=== PATIENT | male | born 1990 | race Caucasian/White ===

== ENCOUNTER 2016-11-30 22:51 | Emergency (ER) | payer SELFPAY ==
[~2016-11-30] VITALS: Ht 172.7 cm; Wt 72.6 kg
[2016-11-30 23:28] LABS: Urine Bilirubin Negative (Negative); Urine Color Yellow (Yellow); Urine Glucose Normal (Normal); Urine Mucus FEW (None Seen); Urine Nitrite Negative (Negative); Urine RBC 10 /hpf (0 - 3); Urine Squamous Epithelial Cell FEW /hpf (<5); Urine Urobilinogen Normal (Negative)
[2016-11-30 23:30] LABS: Basophils # (auto) 0 uL; Basophils % (auto) 0.2 % (0.0-2.0); CONDITION Y; Eosinophils # (auto) 0 uL; Hematocrit 41.2 % (41.0-53.0); Hemoglobin 14.2 g/dL (13.5-17.5); Lymphocytes # (auto) 0.8 uL; Lymphocytes % (auto) 9.3 % (10.0-50.0); Mean Corpuscular Hemoglobin 32.7 pg (28.0-32.0); Mean Corpuscular Hgb Conc. 34.3 g/dL (32.0-36.0); Mean Corpuscular Volume 95.2 fL (80.0-100.0); Mean Platelet Volume 7.5 fL (7.4-10.4); Monocytes # (auto) 0.7 uL; Neutrophils # (auto) 7.1 uL; Neutrophils % (auto) 82.5 % (37.0-80.0); Platelet Count (auto) 190 10^3/uL (140-450); Red Cell Distribution Width 13.5 % (11.6-16.0); White Blood Cell 8.6 10^3/uL (4.4-10.8)
[2016-11-30 23:30] LABS: Urine Blood 1+ /uL (Negative); Urine Ketone 2+ (Negative)
[2016-11-30 23:55] LABS: Albumin 4.6 g/dL (3.4-5.0); Anion Gap 14 (5-15); Aspartate Aminotransferase 193 U/L (15-37); Blood Urea Nitrogen 7 mg/dL (7-18); Calcium 9.4 mg/dL (8.5-10.1); Carbon Dioxide 24 mmol/L (21-32); Chloride 95 mmol/L (98-107); GFR African American 116 mL/min; GFR Non-African American 96 mL/min; Glucose 104 mg/dL (74-106); Potassium 3.9 mmol/L (3.5-5.1); Sodium 133 mmol/L (136-145)
[2016-11-30 23:58] LABS: Alkaline Phosphatase 46 U/L (45-117); Total Protein 9.4 g/dL (6.4-8.2)
[2016-12-01] MEDS ORDERED: LORazepam 2MG/ML-1ML VIAL ONE (02:32)
[2016-12-01] MEDS ORDERED: LORazepam 2MG/ML-1ML VIAL IM ONE (02:45)
[2016-12-01] MEDS ORDERED: THIAMINE HCL 100 MG/ML 2ML VIAL IM ONE (03:15)
[2016-12-01 04:30] VITALS: BP 109/65
== END 2016-12-01 05:00 | disposition home or self-care (01) ==
LOC: ER 22:57
DX: S02.2XXA Fracture of nasal bones, initial encounter for closed fracture (principal); S09.90XA Unspecified injury of head, initial encounter; R53.1 Weakness; R42 Dizziness and giddiness; E87.1 Hypo-osmolality and hyponatremia; F10.239 Alcohol dependence with withdrawal, unspecified; W22.8XXA Striking against or struck by other objects, initial encounter; Y93.89 Activity, other specified; Y92.89 Other specified places as the place of occurrence of the external cause; Y99.8 Other external cause status
CPT/HCPCS: 36415; 70450; 70486; 80053; 80307; 80320; 81001; 85025; 96372; 99285; J2060; J3411

== ENCOUNTER 2024-08-11 14:44 | Emergency (ER) | payer MEDICAID, OTHER ==
[~2024-08-11] VITALS: Ht 180.3 cm; Wt 91.0 kg
--- NOTE | 2024-08-11 15:21 | ED.PDOC ---
History of Present Illness HPI Comments 34 y/o MMARINA presents to the ED for CC of generalized weakness. EMS reports, patient is coming from home where he was relayed to come to the ED by PCP, for possible anemia and liver chorisis. Patient states, that he was sent by PCP () for possible anemia. Patient comments on, symptoms of weakness following his last lab draws yesterday (08/10/24). Patient relays, that he dose drink heavily having x6-8 in day; states last drink to be 0000 today (08/11/24). Patient denies fever, chills, fatigue, nausea, or vomiting. No other symptoms or modifiers present at this time. Chief Complaint: Abnormal LAB's Time Seen by MD: 15:00 Primary Care Provider: UNKNOWN Reviewed Notes: Nurses Notes, Medications, Allergies Allergies: Coded Allergies: NO KNOWN ALLERGIES (Unverified , 11/30/16) Information Source: Patient Mode of Arrival: EMS Severity: Moderate Timing: Days Duration: Since onset Prehospital treatment: None Past Medical History PAST MEDICAL HISTORY: Denies Surgical History: Denies all surgeries Family History Family History: Unknown Social History Smoker: Non-Smoker Alcohol: Heavy Drugs: Denies Drug Use Lives In: Home Constitutional: denies: chills, diaphoresis, fatigue, fever, malaise, sweats, weakness, others EENTM: denies: blurred vision, double vision, ear bleeding, ear discharge, ear drainage, ear pain, ear ringing, eye pain, eye redness, hearing loss, mouth pain, mouth swelling, nasal discharge, nose bleeding, nose congestion, nose pain, photophobia, tearing, throat pain, throat swelling, voice changes, others Respiratory: denies: cough, hemoptysis, orthopnea, SOB at rest, shortness of breath, SOB with excertion, stridor, wheezing, others Cardiovascular: denies: chest pain, dizzy spells, diaphoresis, Dyspnea on exertion, edema, irregular heart beat, left arm pain, lightheadedness, palpitations, PND, syncope, others Gastrointestinal: denies: abdomen distended, abdominal pain, blood streaked bowels, constipated, diarrhea, dysphagia, difficulty swallowing, hematemesis, melena, nausea, poor appetite, poor fluid intake, rectal bleeding, rectal pain, vomiting, others Genitourinary: denies: burning, dysuria, flank pain, frequency, hematuria, incontinence, penile discharge, penile sore, pain, testicle pain, testicle swelling, urgency, others Neurological: denies: dizziness, fainting, headache, left sided numbness, left sided weakness, numbness, paresthesia, pre-existing deficit, right sided numbness, right sided weakness, seizure, speech problems, tingling, tremors, weakness, others Musculoskeletal: denies: back pain, gout, joint pain, joint swelling, muscle pain, muscle stiffness, neck pain, others Integumetry: denies: bruises, change in color, change in hair/nails, dryness, laceration, lesions, lumps, rash, wounds, others Allergic/Immunocompromised: denies: Difficulty Healing, Frequent Infections, H carlos, Itching, others Hematologic/Lymphatic: denies: anemia, blood clots, easy bleeding, easy bruising, swollen glands, others Endocrine: denies: excessive hunger, excessive sweating, excessive thirst, excessive urination, flushing, intolerance to cold, intolerance to heat, unexplained weight gain, unexplained weight loss, others Psychiatric: denies: anxiety, bipolar disorder, depression, hopeless, panic disorder, schizophrenia, sleepless, suicidal, others All Other Systems: Reviewed and Negative Physical Exam General Appearance: No Apparent Distress, Normal HEENT: Normal ENT Inspection, Pharynx Normal Neck: Full Range of Motion, Non-Tender, Normal, Normal Inspection Respiratory: Chest Non-Tender, Lungs Clear, No Accessory Muscle Use, No Respiratory Distress, Normal Breath Sounds Cardiovascular: No Edema, No Murmur, No Gallop, Normal Peripheral Pulses, Regular Rate/Rhythm Breast Exam: Deferred Gastrointestinal: No Organomegaly, Non Tender, No Pulsatile Mass, Normal Bowel Sounds, Soft Genitalia: Deferred Pelvic: Deferred Rectal: Deferred Extremities: Non-tender, No pedal edema Musculoskeletal : Apperance: Normal Neurologic: Alert, Normal Mood Cerebellar Function: Normal Reflexes: Normal Skin: Dry, Normal Color, Warm Lymphatic: No Adenopathy Was a procedure done? Was a procedure done?: No EKG EKG : Pulse Rate (adult): 90 Powers: Normal Cardiac Rhythm: NSR Block: None Hypertrophy: None ST: Normal Differential Dx Considerations may include: Anemia X-Ray, Labs, Meds, VS Vital Signs Date Time Temp Pulse Resp B/P (MAP) Pulse Ox O2 Delivery O2 Flow Rate FiO2 08/11/24 16:54 98.1 89 15 115/69 (84) 97 98.1 08/11/24 15:21 90 08/11/24 15:08 94 18 96 Room Air 08/11/24 15:08 98.9 94 18 120/75 (90) 96 98.9 08/11/24 15:00 98.9 92 18 116/64 (81) 100 98.9 08/11/24 14:57 90 Lab Test 08/11/24 16:15 08/11/24 15:13 Range/Units Urine Color Dark-yellow Yellow Urine Clarity Clear Clear Urine pH 6.5 5.0-9.0 Urine Specific [place] 1.023 1.001-1.035 Urine Protein Trace H Negative Urine Ketones Trace Negative Urine Blood Negative Negative /uL Urine Nitrite Negative Negative Urine Bilirubin 1+ Negative Urine Urobilinogen 6 Negative mg/dL Urine Leukocyte Esterase Negative Negative /uL Urine RBC 2 0 - 3 /hpf Urine Microscopic WBC 1 0-3 /HPF Urine Squamous Epithelial Cells Few <5 /hpf Urine Bacteria None seen None Seen /hpf Urine Mucus Few None Seen Urine Glucose Normal Normal mg/dL White Blood Count 3.3 L 4.4-10.8 10^3/uL Red Blood Count 2.84 L 4.5-5.90 10^6/uL Hemoglobin 7.8 L 13.5-17.5 g/dL Hematocrit 24.8 L 41.0-53.0 % Mean Corpuscular Volume 87.5 80.0-100.0 fL Mean Corpuscular Hemoglobin 27.4 L 28.0-32.0 pg Mean Corpuscular Hemoglobin Concent 31.3 L 32.0-36.0 g/dL Red Cell Distribution Width 21.8 H 11.8-14.3 % Platelet Count 29 L 140-450 10^3/uL Mean Platelet Volume 8.2 6.9-10.8 fL Neutrophils (%) (Auto) 44.1 37.0-80.0 % Lymphocytes (%) (Auto) 42.7 10.0-50.0 % Monocytes (%) (Auto) 10.6 0.0-12.0 % Eosinophils (%) (Auto) 1.2 0.0-7.0 % Basophils (%) (Auto) 1.4 0.0-2.0 % Neutrophils # (Auto) 1.5 L 1.6-8.6 10 ^3/uL Lymphocytes # (Auto) 1.4 0.4-5.4 10 ^3/uL Monocytes # (Auto) 0.4 0-1.3 10 ^3/uL Eosinophils # (Auto) 0 0-0.8 10 ^3/uL Basophils # (Auto) 0 0-0.2 10 ^3/uL Nucleated Red Blood Cells 0.1 % Platelet Estimate Decreased Large Platelets Few Hypochromasia (manual) Slight Anisocytosis (manual) Slight Target Cells Few Prothrombin Time 13.0 H 9.3-11.8 sec Prothrombin Time INR 1.25 H 0.9-1.15 Activated Partial Thromboplast Time 34.5 24.5-34.5 SEC Sodium Level 141 136-145 mmol/L Potassium Level 4.1 3.5-5.1 mmol/L Chloride Level 104 98-107 mmol/L Carbon Dioxide Level 26 20-31 mmol/L Anion Gap 11 5-15 Blood Urea Nitrogen 5 L 9-23 mg/dL Creatinine 0.57 L 0.700-1.30 mg/dL Glomerular Filtration Rate Calc 132 >90 mL/min BUN/Creatinine Ratio 8.8 L 10.0-20.0 Serum Glucose 113 H 74-106 mg/dL Calcium Level 9.1 8.7-10.4 mg/dL Total Bilirubin 2.7 H 0.2-1.0 mg/dL Aspartate Amino Transferase (AST) 116 H 13-40 U/L Alanine Aminotransferase (ALT) 23 7-40 U/L Alkaline Phosphatase 225 H 46-116 U/L Total Protein 8.9 H 5.7-8.2 g/dL Albumin 3.7 3.2-4.8 g/dL [address] [address] Ph: [phone] DIAGNOSTIC IMAGING Diagnostic Imaging Report : [id number] Signed PATIENT: ALFREDO DUMONT ACCT: [id number] UNIT: [id number] : 1990 LOC: ER ROOM / BED: / AGE / SEX: 34 / M ADM STATUS: REG ER SERVICE 1503 ORDERING PHYSICIAN: CASA BAZZI MD PROCEDURE(s): ABPL - CT AB PEL WO CON-NO ORAL OR IV REASON: ?cirrhosis and splenomegally? ORDER NUMBER(s): [id number], ACCESSION NUMBER(s): [id number] CT ABDOMEN AND PELVIS WITHOUT CONTRAST CLINICAL HISTORY: cirrhosis and splenomegally TECHNIQUE: Multiple contiguous axial images of the abdomen and pelvis without intravenous contrast. The images were reformatted degenerate coronal and sagittal reconstructions. All CT scans at this medical facility are performed using dose modulation techniques as appropriate to a performed exam including the following:Automated exposure control was utilized; adjustment of the MA and/or KV according to patient size; and use of iterative reconstruction technique. Radiation Dose Information: CT Dose: CTDI volume is 11.98 mGy. Dose-length product is 590.73 mGy*cm Comparison: None FINDINGS: Evaluation of the abdomen and pelvis is limited without intravenous contrast. The liver demonstrates decreased attenuation. There is mildly nodular hepatic surface contour. There is no gross hepatic lesion. There is no evidence of ascites. Spleen is prominent in size measuring 14.1 cm in AP diameter. There are perisplenic and left perirenal varices. Gallbladder is mildly contracted with thickened appearing day. There are dependently layering gallstones seen in the gallbladder. The pancreas, kidneys, adrenal glands, delete the appear within normal limits. There is no gross evidence of abdominal lymphadenopathy. There is no free fluid or free air. The stomach grossly appears unremarkable. The small and large bowel loops demonstrate normal caliber and distribution. A normal appearing appendix is seen in the right lower quadrant abdomen. The abdominal aorta and IVC appear within normal limits. Bladder is decompressed limiting evaluation. Pelvic organ appears within normal limits. There is no gross evidence of a pelvic mass. There is no free fluid collection. Lung bases are clear. There is no acute osseous abnormality. IMPRESSION: 1. The liver demonstrates decreased attenuation and mildly nodular surface contour. The findings likely relate to cirrhosis and hepatic steatosis. 2. Splenomegaly. There are perisplenic and left perirenal varices. 3. The gallbladder is mildly contracted with thickened appearing day. There are dependently layering gallstones seen in the gallbladder. Clinical correlatio n for acute cholecystitis is recommended. HS:Y ATED BY: ROMEO PARHAM MD DICTATED DATE/TIME: 08/11/241648 SIGNED BY: ROMEO PARHAM MD SIGNED DATE/TIME: 08/11/241648 CC: X-Ray, Labs, Meds, VS Comment This 34-year-old male was sent in by his PCP secondary concern for anemia [place]. [place] [address]. Most protocol state not transfuse platelets unless they are less than either 10 or [address]. As such, we will not transfuse the patient. The patient was hemoglobin is 7.8. The patient denies melena or other findings setting of a GI bleed. However, per his PCP, his hemoglobin is substantial drop over the last few weeks. Additionally, the patient states he feels weak and lightheaded. He appears pale. As such, I will admit the patient for further workup management of symptomatic anemia. Time of 1ST Reevaluation: 15:30 Reevaluation 1ST: Unchanged Patient Education/Counseling: Diagnosis, Treatment Family Education/Counseling: No Family Present Departure 1 Departure Time of Disposition: 17:24 Impression: Primary Impression: Dizziness Additional Impressions: Weakness Anemia Thrombocytopenia Cirrhosis Splenomegaly Disposition: 09 ADMITTED INPATIENT Admit to: Tele Condition: Serious Critical Care Note Critical Care Time?: No Stability Stability form required: No Heart Score Heart Score: Heart Score Response (Comments) Value History N/A 0 EKG N/A 0 Age N/A 0 Risk Factors N/A 0 Troponin N/A 0 Total 0 I personally scribed for CASA BAZZI MD ([email or web address]) on 08/11/24 at 15:21. Electronically submitted by Ann Allen ([email or web address]). I personally scribed for CASA BAZZI MD ([email or web address]) on 08/11/24 at 17:23. Electronically submitted by Ann Allen ([email or web address]). CASA BAZZI MD Aug 11, 2024 15:21
[2024-08-11 15:34] LABS: Basophils # (auto) 0 10 ^3/uL (0-0.2); Eosinophils # (auto) 0 10 ^3/uL (0-0.8); Hemoglobin 7.8 g/dL (13.5-17.5); Neutrophils # (auto) 1.5 10 ^3/uL (1.6-8.6); Nucleated Red Blood Cells % 0.1 %; White Blood Cell 3.3 10^3/uL (4.4-10.8)
[2024-08-11 15:36] LABS: Basophils % (auto) 1.4 % (0.0-2.0); Eosinophils % (auto) 1.2 % (0.0-7.0); Hematocrit 24.8 % (41.0-53.0); Lymphocytes # (auto) 1.4 10 ^3/uL (0.4-5.4); Lymphocytes % (auto) 42.7 % (10.0-50.0); Mean Corpuscular Hemoglobin 27.4 pg (28.0-32.0); Mean Corpuscular Hgb Conc. 31.3 g/dL (32.0-36.0); Mean Corpuscular Volume 87.5 fL (80.0-100.0); Monocytes # (auto) 0.4 10 ^3/uL (0-1.3); Monocytes % (auto) 10.6 % (0.0-12.0); Neutrophils % (auto) 44.1 % (37.0-80.0); Platelet Count (auto) 29 10^3/uL (140-450); Red Blood Cells 2.84 10^6/uL (4.5-5.90)
[2024-08-11 15:37] LABS: Red Cell Distribution Width 21.8 % (11.8-14.3)
[2024-08-11 15:48] LABS: INR 1.25 (0.9-1.15); Partial Thromboplastin Time 34.5 SEC (24.5-34.5)
[2024-08-11 15:49] LABS: Alanine Aminotransferase 23 U/L (7-40); Albumin 3.7 g/dL (3.2-4.8); Anion Gap 11 (5-15); BUN/Creatinine Ratio 8.8 (10.0-20.0); Calcium 9.1 mg/dL (8.7-10.4); Carbon Dioxide 26 mmol/L (20-31); Chloride 104 mmol/L (98-107); Potassium 4.1 mmol/L (3.5-5.1); Sodium 141 mmol/L (136-145)
[2024-08-11 15:54] LABS: Alkaline Phosphatase 225 U/L (46-116); Aspartate Aminotransferase 116 U/L (13-40); Bilirubin, Total 2.7 mg/dL (0.2-1.0); Blood Urea Nitrogen 5 mg/dL (9-23); Glucose 113 mg/dL (74-106); Total Protein 8.9 g/dL (5.7-8.2)
[2024-08-11 16:37] LABS: Urine Bacteria None Seen /hpf (None Seen)
--- NOTE | 2024-08-11 16:51 | DVH ---
CT ABDOMEN AND PELVIS WITHOUT CONTRAST CLINICAL HISTORY: cirrhosis and splenomegally TECHNIQUE: Multiple contiguous axial images of the abdomen and pelvis without intravenous contrast. T he images were reformatted degenerate coronal and sagittal reconstructions. All CT scans at this medical facility are performed using dose modulation techniques as appropriate t o a performed exam including the following:Automated exposure control was utilized; adjustment of the MA and/or KV according to patient size; and use of iterative reconstruction technique. Radiation Dose Information: CT Dose: CTDI volume is 11.98 mGy. Dose-length product is 590.73 mGy*cm Comparison: None FINDINGS: Evaluation of the abdomen and pelvis is limited without intravenous contrast. The liver demonstrates decreased attenuation. There is mildly nodular hepatic surface contour. Ther e is no gross hepatic lesion. There is no evidence of ascites. Spleen is prominent in size measuring 14.1 cm in AP diameter. There are perisplenic and left perirena l varices. Gallbladder is mildly contracted with thickened appearing day. There are dependently layering galls tones seen in the gallbladder. The pancreas, kidneys, adrenal glands, delete the appear within normal limits. There is no gross evidence of abdominal lymphadenopathy. There is no free fluid or free air. The stomach grossly appears unremarkable. The small and large bowel loops demonstrate normal caliber and distribution. A normal appearing appendix is seen in the right lower quadrant abdomen. The abdominal aorta and IVC appear within normal limits. Bladder is decompressed limiting evaluation. Pelvic organ appears within normal limits. There is no gross evidence of a pelvic mass. There is no free fluid collection. Lung bases are clear. There is no acute osseous abnormality. IMPRESSION: 1. The liver demonstrates decreased attenuation and mildly nodular surface contour. The findings lik rich relate to cirrhosis and hepatic steatosis. 2. Splenomegaly. There are perisplenic and left perirenal varices. 3. The gallbladder is mildly contracted with thickened appearing day. There are dependently layeri ng gallstones seen in the gallbladder. Clinical correlation for acute cholecystitis is recommended. HS:Y
[2024-08-11 16:59] LABS: Platelet Estimate Decreased
[2024-08-11 17:00] LABS: Anisocytosis Slight; Hypochromia Slight; Large Platelets FEW; Target Cell FEW
[2024-08-11 17:03] LABS: Urine Blood Negative /uL (Negative); Urine Clarity Clear (Clear); Urine Color Dark-Yellow (Yellow); Urine Mucus FEW (None Seen); Urine Protein, UAD TRACE (Negative); Urine Specific Gravity 1.023 (1.001-1.035); Urine Squamous Epithelial Cell FEW /hpf (<5); Urine Urobilinogen 6 mg/dL (Negative); Urine WBC 1 /HPF (0-3); Urine pH 6.5 (5.0-9.0)
[2024-08-11 17:44] VITALS: PULSE 89; RESP 15; O2SAT 97
[2024-08-11 19:41] VITALS: BP 116/69; TEMP 98.4
[2024-08-11 20:23] VITALS: PULSE 82; RESP 17; O2SAT 98
--- NOTE | 2024-08-12 19:33 | ECG ---
[facility] Test Date: 2024-08-11 Test Time: 14:57:08 Pat Name: ALFREDO DUMONT Department: ED Room: Gender: M Software Application Tester: MARIFER : 1990 Requested By: CASA BAZZI Order Number: [id number] Reading MD: Measurements Intervals [place] Rate: 90 P: 41 ID: [id number] QRS: 90 QRSD: 118 T: 58 QT: 392 QTc: 480 Interpretive Statements Sinus rhythm Incomplete right bundle branch block Low voltage, extremity leads Please click the below link to view image of tracing.
== END 2024-08-11 22:40 | disposition left against medical advice (07) ==
LOC: EDBD 14:44 → ER 14:44
DX: R42 Dizziness and giddiness (principal); R53.1 Weakness; D64.9 Anemia, unspecified; D69.6 Thrombocytopenia, unspecified; K74.60 Unspecified cirrhosis of liver; R16.1 Splenomegaly, not elsewhere classified; F10.10 Alcohol abuse, uncomplicated
CPT/HCPCS: 36415; 74176; 80053; 81001; 85025; 85610; 85730; 93005